=== PATIENT | male | born 1995 | race Hispanic/Latino ===

== ENCOUNTER 2023-11-11 08:22 | Emergency (ER) | payer OTHER ==
[~2023-11-11] VITALS: Ht 167.6 cm; Wt 72.6 kg
[2023-11-11 08:33] VITALS: PULSE 92; RESP 18; TEMP 98.9; O2SAT 98
[2023-11-11] MEDS: BACITRACIN ZINC 0.9GM TP STA (09:22)
== END 2023-11-11 09:50 | disposition home or self-care (01) ==
LOC: FSED 08:27
DX: S01.111A Laceration without foreign body of right eyelid and periocular area, initial encounter (principal); W20.8XXA Other cause of strike by thrown, projected or falling object, initial encounter; Y99.0 Civilian activity done for income or pay
CPT/HCPCS: 99282